=== PATIENT | female | born 1995 | race Caucasian/White ===

== ENCOUNTER 2016-08-31 18:32 | Emergency (ER) | payer OTHER ==
[~2016-08-31] VITALS: Ht 160 cm; Wt 63.9 kg
[~2016-08-31 18:32] MED LIST: ALBU1AER9 PO
[2016-08-31 18:37] VITALS: TEMP 37.1; Ht 160 cm; Wt 63.9 kg
--- NOTE | 2016-08-31 19:23 | EMERGENCY ROOM VISIT NOTE ---
History Report prepared by Britta: Erin Meadows Under the Supervision of: Dr. Lam Marques D.O. First contact with patient: 18:52 Chief Complaint: IRREGULAR HEARTBEAT Stated Complaint: LOW HEART RATE History of Present Illness The patient is a 20 year old female who presents to the Emergency Room with complaints of a persistent low heart rate that began prior to arrival. The patient states that today she went to give blood at [facility]. She states that when she had her pulse taken, she was told that it was dangerously low and was instructed to come to the emergency department for further evaluation. The patient states that she donates her plasma at [facility] all the time and has never had this happen before. She denies any lightheadedness. The patient states that she does have tightness in her chest, but states that it is normal. Source of History: patient Onset: prior to arrival Position: other (global) Quality: other (low heart rate) Timing: other (persistent) Note: Associated symptoms: chest tightness. Review of Systems See HPI for pertinent positives & negatives. A total of 10 systems reviewed and were otherwise negative. Past Medical & Surgical Medical Problems: (1) Ovarian cyst (2) Strain of left foot Family History Cancer Diabetes mellitus Hypertension Seizures Social History Smoking Status: Current Every Day Smoker Drug Use: none Marital Status: Housing Status: lives with significant other Occupation Status: employed Current/Historical Medications Scheduled Albuterol (Proair Hfa), 1 PUFF PO DAILY Scheduled PRN Epinephrine (Epipen), 0.3 MG IM UD PRN for ALLERGIC REACTION Allergies Coded Allergies: Peanut (Verified Allergy, Severe, ANAPHYLAXIS, 01/07/16) POLLEN (Unverified Allergy, Intermediate, SNEEZING, RUNNY NOSE, ITCHY EYES , 01/07/16) Physical Exam Vital Signs Date Time Temp Pulse Resp B/P Pulse Ox O2 Delivery O2 Flow Rate FiO2 08/31/16 19:35 78 20 133/67 98 08/31/16 19:09 65 08/31/16 18:37 37.1 84 20 137/85 98 Room Air Physical Exam CONSTITUTIONAL/VITAL SIGNS: Reviewed / noted above. GENERAL: Non-toxic in appearance. INTEGUMENTARY: Warm, dry, and [place]. HEAD: Normocephalic. EYES: without scleral icterus or trauma. ENT/OROPHARYNX: clear and moist. LYMPHADENOPATHY/NECK: Is supple without lymphadenopathy or meningismus. RESPIRATORY: Lungs clear and equal. CARDIOVASCULAR: Regular rate and rhythm. GI/ABDOMEN: Soft and nontender. No organomegaly or pulsatile mass. No rebound or guarding. Normal bowel sounds. EXTREMITIES: Warm and well perfused. BACK: No CVA tenderness. NEUROLOGICAL: Intact without focal deficits. PSYCHIATRIC: normal affect. MUSCULOSKELETAL: Normally developed with good muscle tone. Medical Decision & Procedures ECG Indication: other (low heart rate) Rate (beats per minute): 71 Rhythm: normal sinus (with sinus arrhythmia) Findings: no acute ischemic change, no ectopy ED Course 1851: Previous medical records were reviewed. The patient was evaluated in room B6. A complete history and physical examination was performed. Medical Decision Differential includes acute coronary syndrome, myocardial infarction, CVA, TIA, anemia, infection, pneumonia, UTI, pyelonephritis, poor nutrition, dehydration, electrolyte disturbance,hypoglycemia. This is a 20-year-old female who presents to the ED with a chief complaint of being told she had a low heart rate. The patient was giving plasma today and had her vital signs taken and she was told that her heart rate was low. It was based on a pulse ox reading. The patient was told that she should have it checked. She came to the emergency department for evaluation. She was asymptomatic at that time and is currently asymptomatic. A twelve-lead EKG shows a sinus rhythm in the 80s with a sinus arrhythmia. There is no ectopy or acute injury. The patient's exam was unremarkable. Her vital signs are normal. She is felt to be stable for discharge. Impression Primary Impression: Sinus arrhythmia seen on electrocardiogram Scribe Attestation The scribe's documentation has been prepared under my direction and personally reviewed by me in its entirety. I confirm that the note above accurately reflects all work, treatment, procedures, and medical decision making performed by me. Departure Information Dispostion Home / Self-Care Referrals No Doctor, Assigned (PCP) Forms HOME CARE DOCUMENTATION FORM, IMPORTANT VISIT INFORMATION Patient Instructions My [facility] Additional Instructions Your heart rate is normal. Follow-up with your doctor as needed. Return for any concerns.
[2016-08-31 19:35] VITALS: BP 133/67; PULSE 78; O2SAT 98
[2016-09-08] MEDS ORDERED: EPP3/2 IM (01:00)
== END 2016-08-31 19:36 | disposition home or self-care (01) ==
LOC: C.EDB 18:34
DX: I49.9 Cardiac arrhythmia, unspecified (principal); N83.209 Unspecified ovarian cyst, unspecified side; F17.200 Nicotine dependence, unspecified, uncomplicated; Z87.828 Personal history of other (healed) physical injury and trauma; Z91.018 Allergy to other foods; Z91.09 Other allergy status, other than to drugs and biological substances; Z80.9 Family history of malignant neoplasm, unspecified; Z83.3 Family history of diabetes mellitus; Z82.49 Family history of ischemic heart disease and other diseases of the circulatory system; Z82.0 Family history of epilepsy and other diseases of the nervous system

== ENCOUNTER 2016-09-08 15:06 | Emergency (ER) | payer SELFPAY ==
[~2016-09-08] VITALS: Ht 160 cm; Wt 63.6 kg
[~2016-09-08 15:06] MED LIST changes: +EPP3/2 IM
[2016-09-08 15:11] VITALS: TEMP 36.9; Ht 160 cm; Wt 63.6 kg
[2016-09-08 15:57] LABS: URINE APPEARANCE CLEAR (CLEAR); URINE BILIRUBIN NEG (NEG); URINE COLOR YELLOW; URINE NITRITE NEG (NEG); URINE SPECIFIC GRAVITY 1.018 (1.000-1.030); UROBILINOGEN NEG (NEG)
[2016-09-08] MEDS ORDERED: MULT-580 PO (15:59)
--- NOTE | 2016-09-08 16:00 | EMERGENCY ROOM VISIT NOTE ---
History Report prepared by Isabelibanahi: Jesus Guerrero Under the Supervision of: Dr. Lam Boyd M.D. First contact with patient: 15:28 Chief Complaint: ABDOMINAL PAIN Stated Complaint: ABDOMINAL PAIN History of Present Illness The patient is a 20 year old female with a history of ovarian cysts who presents to the Emergency Room with complaints of persistent cramping abdominal pain for the past 2-3 weeks. The patient also complains of nausea. She denies any fevers, vomiting, diarrhea, or abnormal vaginal bleeding / discharge. The patient's LNMP was 20 days ago, which was physiotherapy aide than usual. She does not deny the possibility of . She donates her plasma frequently at [facility], where it was noted that her heart rate was abnormally high on one occasion and low on another. The patient denies alcohol or drug use. She occasionally consumes caffeine. The patient is not aware of any sick contacts. She does not currently have a PCP. She is a smoker. Source of History: patient Onset: 2-3 weeks ago Position: abdomen Quality: cramping Timing: other (persistent) Associated Symptoms: + nausea, No diarrhea, No fevers, No vomiting Review of Systems See HPI for pertinent positives & negatives. A total of 10 systems reviewed and were otherwise negative. Past Medical & Surgical Medical Problems: (1) Ovarian cyst (2) Strain of left foot Family History Cancer Diabetes mellitus Hypertension Seizures Social History Smoking Status: Current Every Day Smoker Drug Use: none Marital Status: Housing Status: lives with significant other Occupation Status: employed Current/Historical Medications Scheduled Famotidine (Pepcid), 1 TAB PO DAILY Multiple Vitamins W/ Minerals (Hair/Skin/Nails), 3 TABS PO DAILY Scheduled PRN Epinephrine (Epipen), 0.3 MG IM UD PRN for ALLERGIC REACTION Allergies Coded Allergies: Peanut (Verified Allergy, Severe, ANAPHYLAXIS, 01/07/16) POLLEN (Unverified Allergy, Intermediate, SNEEZING, RUNNY NOSE, ITCHY EYES , 01/07/16) Physical Exam Vital Signs Date Time Temp Pulse Resp B/P Pulse Ox O2 Delivery O2 Flow Rate FiO2 09/08/16 17:48 113/58 09/08/16 17:46 57 17 09/08/16 17:45 58 09/08/16 17:00 49 16 117/80 97 Room Air 1/25/17 15:11 36.9 95 18 145/79 99 Room Air Physical Exam GENERAL: Patient is a healthy-appearing well-nourished HEAD: Normocephalic atraumatic EYES: Ocular movements intact pupils equal and react to light OROPHARYNX mucous membranes are moist no exudates present no erythema or edema present NECK: Supple no nuchal rigidity CHEST: Good equal expansion LUNGS: Clear and equal to auscultation CARDIAC: Normal S1 and S2 ABDOMEN: Soft nontender no guarding BACK: No CVA tenderness EXTREMITIES: No pain upon palpation normal muscle strength in all groups no clubbing cyanosis or edema NEURO: Patient is following commands is answering questions appropriately. Alert and oriented x3 Cranial Nerves 2-12 grossly intact Medical Decision & Procedures ER Provider Diagnostic Interpretation: X-ray results as stated below per my interpretation and radiologist interpretation. Other radiology results as stated below per my review and radiologist interpretation: SINGLE VIEW CHEST CLINICAL HISTORY: Atypical chest pain. FINDINGS: An AP, portable, upright chest radiograph is obtained. No prior studies are available for comparison at the time of dictation. The cardiomediastinal silhouette is unremarkable. The lungs and pleural spaces are clear. No pneumothorax is seen. The bony thorax is grossly intact. IMPRESSION: No active disease in the chest. Electronically signed by: Steve Martin M.D. 09/08/2016 4:03 PM Dictated Date/Time: 09/08/2016 4:03 PM ULTRASOUND OF THE PELVIS CLINICAL HISTORY: Left pelvic pain. COMPARISON STUDY: Abdominal CT dated 12/01/2015. TECHNIQUE: Real-time, grayscale, and color flow sonography of the pelvis is performed both transabdominally and endovaginally. Images are reviewed in the transverse and longitudinal planes. FINDINGS: Uterus: The retroverted uterus is normal in size and echotexture, measuring 9.2 x 4.4 x 4.6 cm. Endometrium: The endometrium is thickened and slightly heterogeneous, measuring up to 1.4 cm. No abnormal endometrial vascularity is seen on color imaging. Ovaries: The ovaries are normal in size and morphology. The right ovary measures 4.0 x 2.0 x 3.2 cm and the left ovary measures 3.2 x 1.3 x 2.4 cm. Bilateral ovarian follicles are identified. Normal Doppler waveforms are shown within both ovaries. Pelvis: There is trace free fluid in the cul-de-sac. No concerning adnexal lesion is seen. IMPRESSION: 1. No acute sonographic abnormality is identified in the pelvis. 2. There is trace and likely physiologic free fluid in the cul-de-sac. 3. There is nonspecific endometrial thickening, measuring up to 1.4 cm. Electronically signed by: Steve Martin M.D. 09/08/2016 4:59 PM Dictated Date/Time: 09/08/2016 4:56 PM KUB CLINICAL HISTORY: Left lower quadrant abdominal pain. FINDINGS: 2 AP supine abdominal radiographs are correlated with abdominal CT dated 12/01/2015. There is a nonobstructed abdominal bowel gas pattern. No evidence of intraperitoneal free air is seen on these supine views. No abnormal abdominal calcifications are identified. The bony structures appear intact. The lung bases are clear as imaged. IMPRESSION: Unremarkable abdominal radiographs. Electronically signed by: Steve Martin M.D. 09/08/2016 5:55 PM Dictated Date/Time: 09/08/2016 5:54 PM Laboratory Results 09/08/16 15:51 Red Blood Count 4.70, Mean Corpuscular Volume 83.2, Mean Corpuscular Hemoglobin 28.9, Mean Corpuscular Hemoglobin Concent 34.8, Mean Platelet Volume 10.7, Neutrophils (%) (Auto) 55.9, Lymphocytes (%) (Auto) 28.0, Monocytes (%) (Auto) 8.6, Eosinophils (%) (Auto) 6.8, Basophils (%) (Auto) 0.6, Neutrophils # (Auto) 4.03, Lymphocytes # (Auto) 2.02, Monocytes # (Auto) 0.62, Eosinophils # (Auto) 0.49, Basophils # (Auto) 0.04 09/08/16 15:51 Test 09/08/16 15:30 09/08/16 15:51 Urine Color YELLOW Urine Appearance CLEAR (CLEAR) Urine pH 7.0 (4.5-7.5) Urine Specific [place] 1.018 (1.000-1.030) Urine Protein NEG (NEG) Urine Glucose (UA) NEG (NEG) Urine Ketones NEG (NEG) Urine Occult Blood NEG (NEG) Urine Nitrite NEG (NEG) Urine Bilirubin NEG (NEG) Urine Urobilinogen NEG (NEG) Urine Leukocyte Esterase NEG (NEG) Urine Test NEG (NEG) White Blood Count 7.21 K/uL (4.8-10.8) Red Blood Count 4.70 M/uL (4.2-5.4) Hemoglobin 13.6 g/dL (12.0-16.0) Hematocrit 39.1 % (37-47) Mean Corpuscular Volume 83.2 fL (80-100) Mean Corpuscular Hemoglobin 28.9 pg (25-34) Mean Corpuscular Hemoglobin Concent 34.8 g/dl (32-36) Platelet Count 248 K/uL (130-400) Mean Platelet Volume 10.7 fL (7.4-10.4) Neutrophils (%) (Auto) 55.9 % Lymphocytes (%) (Auto) 28.0 % Monocytes (%) (Auto) 8.6 % Eosinophils (%) (Auto) 6.8 % Basophils (%) (Auto) 0.6 % Neutrophils # (Auto) 4.03 K/uL (1.4-6.5) Lymphocytes # (Auto) 2.02 K/uL (1.2-3.4) Monocytes # (Auto) 0.62 K/uL (0.11-0.59) Eosinophils # (Auto) 0.49 K/uL (0-0.5) Basophils # (Auto) 0.04 K/uL (0-0.2) RDW Standard Deviation 40.5 fL (36.4-46.3) RDW Coefficient of Variation 13.3 % (11.5-14.5) Immature Granulocyte % (Auto) 0.1 % Immature Granulocyte # (Auto) 0.01 K/uL (0.00-0.02) Anion Gap 11.0 mmol/L (3-11) Est Creatinine Clear Calc Drug Dose 84.8 ml/min Estimated GFR () 99.9 Estimated GFR (Non- 86.2 BUN/Creatinine Ratio 11.5 (10-20) Calcium Level 9.0 mg/dl (8.5-10.1) Total Bilirubin 0.3 mg/dl (0.2-1) Direct Bilirubin < 0.1 mg/dl (0-0.2) Aspartate Amino Transf (AST/SGOT) 12 U/L (15-37) Alanine Aminotransferase (ALT/SGPT) 20 U/L (12-78) Alkaline Phosphatase 42 U/L (45-117) Total Creatine Kinase 63 U/L (26-192) Creatine Kinase MB 0.6 ng/ml (0.5-3.6) Creatine Kinase MB Ratio 1.0 (0-3.0) Troponin I < 0.015 ng/ml (0-0.045) Total Protein 7.0 gm/dl (6.4-8.2) Albumin 4.1 gm/dl (3.4-5.0) Lipase 167 U/L (73-393) Thyroid Stimulating Hormone (TSH) 1.500 uIu/ml (0.300-4.500) Labs reviewed by ED physician. Medications Administered Medications (Trade) Dose Ordered Sig/Robert Route Start Time Stop Time Status Last Admin Dose Admin Sodium Chloride (Nss 1000ml) 1,000 ml @ 999 mls/hr Q1H1M STAT IV 09/08/16 16:57 09/08/16 17:57 DC 09/08/16 16:57 999 MLS/HR Ketorolac Tromethamine (Toradol Inj) 30 mg NOW STAT IV 09/08/16 16:57 09/08/16 16:58 DC 09/08/16 16:57 30 MG Famotidine (Pepcid Tab) 20 mg NOW ONCE PO 09/08/16 17:45 09/08/16 17:46 DC 09/08/16 17:47 20 MG Sucralfate (Carafate Tab) 1 gm NOW STAT PO 09/08/16 17:35 09/08/16 17:36 DC 09/08/16 17:47 1 GM Lidocaine HCl (Viscous Lidocaine 2% Soln) 20 ml STK-MED ONCE .ROUTE 09/08/16 17:42 09/08/16 17:44 DC 09/08/16 17:47 20 ML Al Hydroxide/Mg Hydroxide (Maalox Susp) 30 ml STK-MED ONCE .ROUTE 09/08/16 17:42 09/08/16 17:44 DC 09/08/16 17:46 30 ML ED Course 1545: Past medical records reviewed. The patient was evaluated in room C2b. A complete history and physical examination was performed. 1657: Toradol 30 mg IV, NSS 1000 ml @ 999 mls/hr. 1735: Sucralfate 1 gm PO, GI Cocktail 24 ml PO. 1745: Famotidine 20 mg PO. 1800: Reassessed the patient. Discussed the findings with her. She verbalized understanding and agreement of the treatment plan. The patient is ready for discharge. Medical Decision Etiologies such as appendicitis, diverticulitis, PUD, biliary pathology, UTI, pancreatitis, obstruction, mesenteric ischemia, aortic pathology, infections, inflammatory bowel disease, renal colic, ovarian pathologies, as well as others were entertained. This is a 20-year-old female who presents emergency department complaining of epigastric pain. The patient reports she has had episodes of bradycardia as well as tachycardia when she has been trying to donate plasma. She denies any chest pain he has a normal CBC renal profile liver profile as well as lipase. The patient was given GI cocktail, Pepcid and Carafate with much improvement in her symptoms. I do believe that the patient is well enough to be discharged home for follow-up with gastroenterology. Patient was in agreement with the treatment plan. Impression Primary Impression: Epigastric pain Scribe Attestation The scribe's documentation has been prepared under my direction and personally reviewed by me in its entirety. I confirm that the note above accurately reflects all work, treatment, procedures, and medical decision making performed by me. Departure Information Dispostion Home / Self-Care Prescriptions Famotidine (PEPCID) 40 Mg Tab 1 TAB PO DAILY for 30 Days, #30 TAB 3 Refills Prov: Lam Boyd MD 09/08/16 Referrals No Doctor, Assigned (PCP) Forms HOME CARE DOCUMENTATION FORM, IMPORTANT VISIT INFORMATION, School Instructions, Work Instructions Patient Instructions ED Abd Pain Unkn Cause Fem, My [facility] Additional Instructions Take 5 ml Maalox before every meal and at bedtime Clear liquid diet next 48 hours Follow up with [facility] in medicine You have been examined and treated today on an emergency basis only. This is not a substitute for, or an effort to provide, complete comprehensive medical care. It is impossible to recognize and treat all injuries or illnesses in a single emergency department visit. It is therefore important that you follow up closely with [facility]. Call as soon as possible for an appointment. Thank you for your time and consideration. I look forward to speaking with you again soon. Please don't hesitate to call us if you have any questions.
--- NOTE | 2016-09-08 16:05 | DIAGNOSTIC IMAGING REPORT ---
SINGLE VIEW CHEST CLINICAL HISTORY: Atypical chest pain. FINDINGS: An AP, portable, upright chest radiograph is obtained. No prior studies are available for comparison at the time of dictation. The cardiomediastinal silhouette is unremarkable. The lungs and pleural spaces are clear. No pneumothorax is seen. The bony thorax is grossly intact. IMPRESSION: No active disease in the chest. Electronically signed by: Steve Martin M.D. 09/08/2016 4:03 PM Dictated Date/Time: 09/08/2016 4:03 PM
[2016-09-08 16:09] LABS: MANUAL MICROSCOPIC REQUIRED? NO; REVIEW REQ? NO
[2016-09-08 16:21] LABS: BASO % 0.6 %; BASO ABS # 0.04 K/uL (0-0.2); COMPLETE YES; EOS % 6.8 %; HEMATOCRIT 39.1 % (37-47); IG% 0.1 %; LYMPH ABS # 2.02 K/uL (1.2-3.4); MEAN CELL VOLUME 83.2 fL (80-100); MEAN CORPUSCULAR HEMOGLOBIN 28.9 pg (25-34); MEAN CORPUSCULAR HGB CONC 34.8 g/dl (32-36); MEAN PLATELET VOLUME 10.7 fL (7.4-10.4); MONO % 8.6 %; NEUT % 55.9 %; PLATELET COUNT 248 K/uL (130-400); WHITE BLOOD COUNT 7.21 K/uL (4.8-10.8)
[2016-09-08 16:40] LABS: ALT/SGPT 20 U/L (12-78); AST/SGOT 12 U/L (15-37); BLOOD UREA NITROGEN 11 mg/dl (7-18); BUN/CREATININE RATIO 11.5 (10-20); CARBON DIOXIDE 25 mmol/L (21-32); CHLORIDE 107 mmol/L (98-107); CREATININE 0.95 mg/dl (0.60-1.20); GLUCOSE 73 mg/dl (70-99); POTASSIUM 3.5 mmol/L (3.5-5.1); SODIUM 143 mmol/L (136-145)
[2016-09-08 16:45] LABS: ALKALINE PHOSPHATASE 42 U/L (45-117)
[2016-09-08] MEDS ORDERED: KETOROLAC TROMETHAMINE 30 MG/ML VIAL IV STA (16:57)
[2016-09-08] MEDS ORDERED: SODIUM CHLORIDE 0.9% 1000ML 1,000 ML IV STA (16:57)
[2016-09-08 17:00] VITALS: O2SAT 97
--- NOTE | 2016-09-08 17:00 | DIAGNOSTIC IMAGING REPORT ---
ULTRASOUND OF THE PELVIS CLINICAL HISTORY: Left pelvic pain. COMPARISON STUDY: Abdominal CT dated 12/01/2015. TECHNIQUE: Real-time, grayscale, and color flow sonography of the pelvis is performed both transabdominally and endovaginally. Images are reviewed in the transverse and longitudinal planes. FINDINGS: Uterus: The retroverted uterus is normal in size and echotexture, measuring 9.2 x 4.4 x 4.6 cm. Endometrium: The endometrium is thickened and slightly heterogeneous, measuring up to 1.4 cm. No abnormal endometrial vascularity is seen on color imaging. Ovaries: The ovaries are normal in size and morphology. The right ovary measures 4.0 x 2.0 x 3.2 cm and the left ovary measures 3.2 x 1.3 x 2.4 cm. Bilateral ovarian follicles are identified. Normal Doppler waveforms are shown within both ovaries. Pelvis: There is trace free fluid in the cul-de-sac. No concerning adnexal lesion is seen. IMPRESSION: 1. No acute sonographic abnormality is identified in the pelvis. 2. There is trace and likely physiologic free fluid in the cul-de-sac. 3. There is nonspecific endometrial thickening, measuring up to 1.4 cm. Electronically signed by: Steve Martin M.D. 09/08/2016 4:59 PM Dictated Date/Time: 09/08/2016 4:56 PM
[2016-09-08] MEDS ORDERED: FAMO40TA6 PO (17:34)
[2016-09-08] MEDS ORDERED: SUCRALFATE 1 GM TAB PO STA (17:35)
[2016-09-08] MEDS ORDERED: GI COCKTAIL PO STA (17:35)
[2016-09-08] MEDS ORDERED: LIDOCAINE HCL 2% VISC SOLN 20 ML UDC ONE (17:42)
[2016-09-08] MEDS ORDERED: ALUMINUM/MAGNESIUM SUSP 30 ML UDC ONE (17:42)
[2016-09-08] MEDS ORDERED: FAMOTIDINE 20 MG TAB PO ONE (17:45)
[2016-09-08 17:46] VITALS: PULSE 57
[2016-09-08 17:48] VITALS: BP 113/58
--- NOTE | 2016-09-08 17:56 | DIAGNOSTIC IMAGING REPORT ---
KUB CLINICAL HISTORY: Left lower quadrant abdominal pain. FINDINGS: 2 AP supine abdominal radiographs are correlated with abdominal CT dated 12/01/2015. There is a nonobstructed abdominal bowel gas pattern. No evidence of intraperitoneal free air is seen on these supine views. No abnormal abdominal calcifications are identified. The bony structures appear intact. The lung bases are clear as imaged. IMPRESSION: Unremarkable abdominal radiographs. Electronically signed by: Steve Martin M.D. 09/08/2016 5:55 PM Dictated Date/Time: 09/08/2016 5:54 PM
== END 2016-09-08 18:15 | disposition home or self-care (01) ==
LOC: C.EDB 15:07 → C.EDC 18:15
DX: R10.13 Epigastric pain (principal); F17.210 Nicotine dependence, cigarettes, uncomplicated; Z79.899 Other long term (current) drug therapy